=== PATIENT | female | born 1970 | race Caucasian/White ===

== ENCOUNTER 2018-02-25 19:19 | Emergency (ER) | payer OTHER ==
[~2018-02-25] VITALS: Ht 167.6 cm; Wt 97.5 kg
[~2018-02-25 19:19] MED LIST: ACET500 PO; ALBU.083IS IH; ALBU3IS INH; ALBU90OI INH; ALBU90OI6 INH; ALBU90OI61 INH; ANTOXYBENA LEFTEAR; AZIT250 PO; BENZ100A PO; Bactrim Ds Tab1 EACH PO; CITA20 PO; CLIN300 PO; CRUTCH4 USE; CYCL10 PO; Clonazepam0.5 MG PO; DIVA500ER PO; Doxycycline Mo100 M1 PO; ESCI10 PO; ESCI20 PO; FLUSAL2505 IH; HYDACE5 PO; HYDPAM25 PO; IBUP600 PO; IBUP800 PO; Keflex500 MG PO; MONT10T PO; NAPR500 PO; NAPR550 PO; NEOPOLHYDS LEFTEAR; Norco 5-325 Ta1 EACH PO; OXYACE5T PO; PRED10 PO; PRED20 PO; PROC10 PO; PROM25 PO; Prednisone20 MG PO; QVAR7.3 G1 IH; SERT50; TRAZ100 PO; TRAZ50 PO; Ultram50 MG PO; Ventolin Soln3 ML INH; [UNRECOGNIZED DRUG - OTHER]
[2018-02-25] MEDS ORDERED: CLON.5 PO (19:50)
== END 2018-02-25 21:20 | disposition home or self-care (01) ==
LOC: ER 19:19
DX: S70.11XA Contusion of right thigh, initial encounter (principal); S80.01XA Contusion of right knee, initial encounter; S80.11XA Contusion of right lower leg, initial encounter; W01.0XXA Fall on same level from slipping, tripping and stumbling without subsequent striking against object, initial encounter; Z88.0 Allergy status to penicillin; Z88.6 Allergy status to analgesic agent; Z88.8 Allergy status to other drugs, medicaments and biological substances; Z79.899 Other long term (current) drug therapy; J45.909 Unspecified asthma, uncomplicated; F32.9 Major depressive disorder, single episode, unspecified
CPT/HCPCS: 73564; 99283

== ENCOUNTER 2019-05-21 10:43 | Emergency (ER) | payer OTHER ==
[~2019-05-21] VITALS: Ht 170.2 cm; Wt 90.7 kg
[~2019-05-21 10:43] MED LIST changes: +CLON.5 PO
[2019-05-21] MEDS ORDERED: PRED20 PO (13:21)
[2019-05-21] MEDS ORDERED: ALBU90OI INH (13:21)
[2019-05-21] MEDS ORDERED: SPACE CHAMBER1 EACH PO (13:21)
== END 2019-05-21 13:54 | disposition home or self-care (01) ==
LOC: ER 10:43
DX: J45.909 Unspecified asthma, uncomplicated (principal); F32.9 Major depressive disorder, single episode, unspecified; Z88.0 Allergy status to penicillin; Z88.6 Allergy status to analgesic agent; Z88.5 Allergy status to narcotic agent; Z79.899 Other long term (current) drug therapy; Z79.52 Long term (current) use of systemic steroids
CPT/HCPCS: 93005; 93010; 94640; 99283-25; J7512

== ENCOUNTER 2020-05-14 19:27 | Emergency (ER) | payer OTHER ==
[~2020-05-14] VITALS: Ht 172.7 cm; Wt 93.0 kg
[~2020-05-14 19:27] MED LIST changes: +SPACE CHAMBER1 EACH PO
== END 2020-05-14 22:55 | disposition home or self-care (01) ==
LOC: ER 19:27
DX: S96.911A Strain of unspecified muscle and tendon at ankle and foot level, right foot, initial encounter (principal); Z88.0 Allergy status to penicillin; Z88.6 Allergy status to analgesic agent; Z88.8 Allergy status to other drugs, medicaments and biological substances; Z79.899 Other long term (current) drug therapy; J45.909 Unspecified asthma, uncomplicated; F32.9 Major depressive disorder, single episode, unspecified; X50.9XXA Other and unspecified overexertion or strenuous movements or postures, initial encounter
CPT/HCPCS: 73610; 73630; 99283-25; L1906

== ENCOUNTER 2025-02-15 06:27 | Emergency (ER) | payer OTHER ==
[~2025-02-15] VITALS: Ht 172.7 cm; Wt 99.8 kg
[2025-02-15] MEDS ORDERED: HYDROcodone 5-APAP 325 TAB PO ONE (07:20)
[2025-02-15] MEDS ORDERED: HYDR1TAB94 PO (08:36)
[2025-02-15 09:04] VITALS: BP 129/84
== END 2025-02-15 09:00 | disposition home or self-care (01) ==
LOC: ER 06:27
DX: S96.911A Strain of unspecified muscle and tendon at ankle and foot level, right foot, initial encounter (principal); R60.0 Localized edema; Z88.0 Allergy status to penicillin; Z88.8 Allergy status to other drugs, medicaments and biological substances; Z79.899 Other long term (current) drug therapy
CPT/HCPCS: 73610; 93971; 99284-25; A9270

== ENCOUNTER 2025-03-12 07:43 | Emergency (ER) | payer OTHER ==
[~2025-03-12] VITALS: Ht 172.7 cm; Wt 90.7 kg
[~2025-03-12 07:43] MED LIST changes: +HYDR1TAB94 PO
[2025-03-12] MEDS ORDERED: Acetaminophen 500 MG Tab PO ONE (09:00)
[2025-03-12] MEDS ORDERED: Ibuprofen 400 MG Tab PO ONE (09:00)
[2025-03-12 09:45] VITALS: BP 165/96
== END 2025-03-12 10:39 | disposition home or self-care (01) ==
LOC: ER 07:43
DX: S83.91XA Sprain of unspecified site of right knee, initial encounter (principal); J45.909 Unspecified asthma, uncomplicated; X50.1XXA Overexertion from prolonged static or awkward postures, initial encounter
CPT/HCPCS: 29505; 73562-RT; 73590; 99283-25; A9270